=== PATIENT | male | born 1950 | race Caucasian/White ===

== ENCOUNTER 2016-07-13 09:16 | Emergency (ER) | payer MEDICARE, OTHER ==
--- NOTE | ~2016-07-13 | US85 ---
[facility] A Service of [facility] & [facility] RADIOLOGY TEXT RESULTS PATIENT: CARLO THOMAS LOCATION: SED : 49 UNIT #: [id number] AGE: [address]: Karthik Koo MD SEX: M ORDER DR: [id number] [place] [id number] E MR#: [id number] Acc #: [id number] NAME: CARLO THOMAS : 1950 SEX: M STUDY DATE/TIME: 07/13/2016 9:31 UNIT: SED ROOM: STUDY DESCRIPTION: [facility] [place] [facility] Attending Physician: Karthik Koo M.D. Ordering Physician: Karthik Koo M.D. MEDICAL IMAGING REPORT This report is preliminary unless electronic signature is present. EXAM Right lower extremity venous Doppler INDICATION Right leg pain in the area of the knee for 3 days. No known trauma. TECHNIQUE Nunez-scale, color Doppler and spectral Doppler waveform analysis was performed through the patient's right lower extremity. FINDINGS The examination is negative. There is no evidence of right lower extremity deep venous thrombus from the groin to the lower calf. Visualized greater saphenous vein is also patent. IMPRESSION Negative. Dictated by... Judith Higgins M.D. THIS IS AN ELECTRONICALLY VERIFIED REPORT Judith Higgins M.D. at 07/17/2016 3:45 PM ANIYAH/elizabeth TD: 07/13/2016 10:39 JOB #: [id number] MEDICAL IMAGING REPORT Page 1 of 1
--- NOTE | ~2016-07-13 | EKG ---
PATIENT: CARLO THOMAS UNIT #: [id number] Ventricular Rate: 76 BPM Atrial Rate: 76 BPM P-R Interval: 120 ms QRS Duration: 88 ms Q-T Interval: 354 ms QTC Calculation(Bezet): 398 ms P Lewis: 49 degrees Calculated R Lewis: 50 degrees Calculated T Lewis: 48 degrees Diagnosis Line: Normal sinus rhythm Diagnosis Line: Normal ECG Diagnosis Line: When compared with ECG of 18-NOV-2015 08:38, Diagnosis Line: No significant change was found Diagnosis Line: Confirmed by SAÚL RUSSELL MD ([id number]) on 07/16/2016 Diagnosis Line: 11:11:28 PM INTERPRETING MD: DREW TREJO
[~2016-07-13 09:16] MED LIST: AMOXICILLIN PO; AMOXICILLIN500 M1 PO; ASPIRIN PO; ASPIRIN325 M1 PO; BAYER ASPIRIN325 M1 PO; BLOOD PRESSURE MED PO; BP MED; CHOLESTEROL MED PO; DIARRHEA MED PO; DOXYCYCLINE HY100 M1 PO; FELDENE20 MG PO; GLIPIZIDE10 MG PO; METFORMIN; METFORMIN PO; NIACIN PO; NITROGLYCERIN0.4 MG SL; PENICILLIN; SIMVASTATIN5 MG PO; TYLENOL EXTRA500 M1 PO; ZOCOR; ZOCOR20 MG PO; [UNRECOGNIZED DRUG - OTHER]
== END 2016-07-13 11:18 | disposition home or self-care (01) ==
LOC: SED 09:16
DX: M25.561 Pain in right knee (principal); K21.9 Gastro-esophageal reflux disease without esophagitis; J44.9 Chronic obstructive pulmonary disease, unspecified; Z79.899 Other long term (current) drug therapy; Z79.2 Long term (current) use of antibiotics; Z79.82 Long term (current) use of aspirin; Z91.040 Latex allergy status
CPT/HCPCS: 29530; 93005; 93971; 99283; 99284

== ENCOUNTER → 2017-01-03 | Outpatient (CLI) | payer MEDICARE, OTHER ==
--- NOTE | ~2017-01-03 | NM69 ---
[facility] A Service of [facility] RADIOLOGY TEXT RESULTS PATIENT: CARLO THOMAS LOCATION: [facility] : 49 UNIT #: [id number] AGE: [address]: Adamaris Zamora SEX: M ORDER DR: [id number] [facility] [address] [place], [place] [address] [id number] O MR#: [id number] Acc #: [id number] NAME: CARLO THOMAS : 1950 SEX: M STUDY DATE/TIME: 01/03/2017 11:12 UNIT: [facility] ROOM: STUDY DESCRIPTION: NM Pulm Vent and Perf Attending Physician: Adamaris Zamora A.P.R.N. Referring Physician: Adamaris Zamora A.P.R.N. Ordering Physician: Adamaris Zamora A.P.R.N. Primary Care Physician: Generic Doctor Not In System MEDICAL IMAGING REPORT This report is preliminary unless electronic signature is present EXAM Ventilation-perfusion scan INDICATIONS Shortness of air. Previous history of pulmonary embolus. Shortness of air beginning a year ago. PROCEDURE Ventilation images obtained after inhalation 34.8 mCi technetium labeled DTPA aerosol. Perfusion images obtained after 5.58 mCi technetium labeled MAA. COMPARISON Two-view chest from 01/03/2017 FINDINGS There are a few subsegmental ventilation-perfusion defects, 1 in the anterior left upper lobe, 1 in the posterior left lower lobe and 1 at the left apex. There is no segmental or larger ventilation-perfusion mismatch. IMPRESSION There are 3 subsegmental ventilation-perfusion mismatches in the left lung. Intermediate probability scan for pulmonary embolus. Dictated by... James Andrews M.D. THIS IS AN ELECTRONICALLY VERIFIED REPORT James Andrews M.D. at 01/04/2017 12:08 PM EED/to TD: 01/03/2017 21:57 JOB #: [id number] [facility] A Service of [facility] RADIOLOGY TEXT RESULTS PATIENT: CARLO THOMAS LOCATION: [facility] #: [id number] : [birth year] UNIT #: [id number] AGE: [address]: Adamaris Zamora SEX: M ORDER DR: MEDICAL IMAGING REPORT Page 1 of 1 COPY
--- NOTE | ~2017-01-03 | CR63 ---
[facility] A Service of [facility] & [facility] RADIOLOGY TEXT RESULTS PATIENT: CARLO THOMAS LOCATION: [facility] : 48 UNIT #: [id number] AGE: [address]: Adamaris Zamora SEX: M ORDER DR: [id number] [facility] [address] [place], [place] [address] [id number] O MR#: [id number] Acc #: [id number] NAME: CARLO THOMAS : 1950 SEX: M STUDY DATE/TIME: 01/03/2017 10:54 UNIT: [facility] ROOM: STUDY DESCRIPTION: CR Chest 2 View Attending Physician: Adamaris Zamora A.P.R.N. Referring Physician: Adamaris Zamora A.P.R.N. Ordering Physician: Adamaris Zamora A.P.R.N. Primary Care Physician: Generic Doctor Not In System MEDICAL IMAGING REPORT This report is preliminary unless electronic signature is present EXAM Two-view chest INDICATIONS Shortness of air today PROCEDURE Frontal and lateral views of the chest COMPARISON 09/09/2013 FINDINGS Heart size is stable. There is no dense consolidation pleural fluid or pneumothorax. Stable flattening of the diaphragm. IMPRESSION 1. No active process. 2. Stable flattening of the diaphragm suggesting COPD change. Dictated by... James Andrews M.D. THIS IS AN ELECTRONICALLY VERIFIED REPORT James Andrews M.D. at 01/04/2017 12:10 PM EED/to TD: 01/03/2017 20:37 JOB #: [id number] MEDICAL IMAGING REPORT Page 1 of 1 COPY
== END | disposition home or self-care (01) ==
LOC: CNUC 10:32
DX: I26.99 Other pulmonary embolism without acute cor pulmonale (principal); J98.6 Disorders of diaphragm
CPT/HCPCS: 71020; 78582; A9540; A9567